=== PATIENT | male | born 2000 | race Caucasian/White ===

== ENCOUNTER 2024-03-06 08:51 | Emergency (ER) | payer BC ==
[~2024-03-06] VITALS: Ht 180.3 cm; Wt 71.0 kg
[~2024-03-06 08:51] MED LIST: MECL1TAB42 PO; ZOFR4T PO
[2024-03-06 09:54] VITALS: PULSE 68; RESP 17; O2SAT 100
[2024-03-06] MEDS: KETOROLAC TROMETH 30 MG/ML 1ML VIAL IM ONE (10:02)
[2024-03-06] MEDS: methylPREDNISolone SOD SUCC 125 MG/2 ML VL IM ONE (10:03)
[2024-03-06] MEDS ORDERED: IBUP1TAB5 PO (12:13)
[2024-03-06] MEDS ORDERED: CYCL-837 PO (12:13)
[2024-03-06 12:28] VITALS: BP 120/65; PULSE 71; RESP 17; TEMP 98.1; O2SAT 99
== END 2024-03-06 12:28 | disposition home or self-care (01) ==
LOC: ER 08:51
DX: M25.512 Pain in left shoulder (principal); R20.0 Anesthesia of skin
CPT/HCPCS: 73200; 96372; 99285; J1885; J2919